=== PATIENT | female | born 1960 | race Caucasian/White ===

== ENCOUNTER 2018-10-24 16:36 | Emergency (ER) | payer BC ==
--- NOTE | 2018-10-24 17:52 | CRLCR ---
INDICATION: Crush injury right thumb. TECHNIQUE: Three views right hand. 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 No other fracture or dislocation in right hand. Marked osteopenia. Mild degenerative arthritis right hand. Remainder negative. Dictated by Sanjay Busby MD @ Oct 24 2018 5:48PM Signed by Dr. Sanjay Busby @ Oct 24 2018 5:51PM
[2018-10-24] MEDS: Ondansetron 4 MG/2 ML SDV IVPUSH ONE ×2 (18:02→19:29)
[2018-10-24] MEDS: Bupivacaine 0.25% 10 ML SDV INJECT ONE (18:02)
[2018-10-24] MEDS: Diphtheria,Pertussis(Acell),Tetanus Vaccine 0.5 ML SDV IM ONE (18:02)
[2018-10-24] MEDS: ceFAZolin 1 GM in Sodium Chloride 0.9% 50 ML IV ONE (18:32)
--- NOTE | 2018-10-24 18:49 | EDM.PDOC ---
ED HPI GENERAL MEDICAL PROBLEM - General Chief Complaint: Upper Extremity Injury/Pain Stated Complaint: CUT OFF FINGER Time Seen by Provider: 10/24/18 18:00 - Related Data Allergies Allergy/AdvReac Type Severity Reaction Status Date / Time Iodinated Contrast- Oral and Allergy Hives Verified 10/24/18 16:59 IV Dye Home Meds: Home Meds Albuterol [Ventolin HFA] 10/24/18 [History] Fluticasone/Vilanterol [Breo Ellipta 100-25 MCG Inhalation Kit] 10/24/18 [ History] Montelukast [Singulair] 10/24/18 [History] Omeprazole 10/24/18 [History] Past Medical History Respiratory History: Reports: Asthma Musculoskeletal History: Reports: Fracture - Past Surgical History HEENT Surgical History: Reports: Tonsillectomy Social & Family History - Tobacco Use Smoking Status *Q: Never Smoker Review of Systems - Review of Systems Review Of Systems: ROS reveals no pertinent complaints other than HPI. ED EXAM, GENERAL - Physical Exam Exam: Not Obtained Free Text/Narrative:: Seen and assessed by Dr. Herrera Course - Vital Signs Last Recorded V/S: Last Vital Signs Temp 97.3 F 10/24/18 17:13 Pulse 70 10/24/18 19:15 Resp 16 10/24/18 19:15 BP 110/69 10/24/18 19:15 Pulse Ox 93 L 10/24/18 19:15 - Orders/Labs/Meds Meds: Medications Discontinued Medications Generic Name Dose Route Start Last Admin Trade Name Freq PRN Reason Stop Dose Admin Bupivacaine HCl 10 ml 10/24/18 17:30 10/24/18 18:02 Sensorcaine-Mpf 0.25% INJECT 10/24/18 17:31 10 ml ONETIME ONE Administration Diphtheria/Tetanus/Acell Pertussis 0.5 ml 10/24/18 17:32 10/24/18 18:02 Adacel IM 10/24/18 17:33 0.5 ml .ONCE ONE Administration Hydromorphone HCl 0.5 mg 10/24/18 18:47 10/24/18 19:16 Dilaudid IVPUSH 10/24/18 18:48 0.5 mg ONETIME ONE Administration Cefazolin Sodium 1 gm/ Sodium 50 mls @ 100 mls/hr 10/24/18 18:13 10/24/18 18: 32 Chloride IV 10/24/18 18:42 100 mls/hr ONETIME ONE Administration Ondansetron HCl 4 mg 10/24/18 16:51 10/24/18 18:02 Zofran IVPUSH 10/24/18 16:52 4 mg ONETIME ONE Administration Ondansetron HCl 4 mg 10/24/18 19:21 10/24/18 19:29 Zofran IVPUSH 10/24/18 19:22 4 mg ONETIME ONE Administration - Re-Assessments/Exams Free Text/Narrative Re-Assessment/Exam: 10/24/18 19:28 58-year-old female with a right thumb injury. Seen and evaluated, treatment started by Dr. Herrera. Care was turned over to myself pending referral for plastic surgery or orthopedic surgery to repair her thumb. The dressing was removed her thumb was reexamined, a photo taken and sent to orthopedics in [place]. Dr. Meng accepted care for the patient. The wound was redressed, she was given 1 g of Ancef and an additional 0.5 mg of IV Dilaudid. She'll be transferred by private car to be evaluated on arrival to [place]. 10/24/18 23:[address] Herrera's notes regarding history, physical, review of systems and initiation of treatment. Departure - Departure Time of Disposition: 19:30 Disposition: DC/Tfer to Other 70 Clinical Impression: Laceration of thumb Qualifiers: Encounter type: initial encounter Damage to nail status: with damage Foreign body presence: without foreign body Laterality: right Qualified Code(s): S61.111A - Laceration without foreign body of right thumb with damage to nail, initial encounter - Discharge Information Instructions: Laceration Care, Adult Referrals: PCP,None [Primary Care Provider] - Forms: ED Department Discharge Care Plan Goals: Go directly to the [place] emergency room to be seen by orthopedics for repair of your injured right thumb. Do not eat or drink anything in route.
[2018-10-24] MEDS: HYDROmorphone 0.5 MG/0.5 ML Syringe IVPUSH ONE (19:16)
== END 2018-10-24 19:38 | disposition other institution (70) ==
LOC: JP.ED 16:36
DX: S61.111A Laceration without foreign body of right thumb with damage to nail, initial encounter (principal); Z23 Encounter for immunization; W23.1XXA Caught, crushed, jammed, or pinched between stationary objects, initial encounter
CPT/HCPCS: 73130-RT; 90471; 90715; 96365; 96375; 96376; 99284-25; J0690; J1170; J2405; J3490; J7050